=== PATIENT | female | born 1960 | race Caucasian/White ===

== ENCOUNTER 2020-06-12 09:44 | Outpatient (CLI) | payer OTHER, SELFPAY ==
[~2020-06-12] VITALS: Ht 160 cm; Wt 91.2 kg
== END 2020-06-12 10:00 | disposition home or self-care (01) ==
LOC: SLB 09:44 → EDSTATUS 06-18 09:43
PROVIDERS: ATTEND Internal Medicine
DX: Z01.812 Encounter for preprocedural laboratory examination (principal); Z20.828 Contact with and (suspected) exposure to other viral communicable diseases; M51.9 Unspecified thoracic, thoracolumbar and lumbosacral intervertebral disc disorder
CPT/HCPCS: U0003-CS

== ENCOUNTER 2021-02-04 08:45 | Day surgery (SDC) | payer OTHER, SELFPAY ==
[~2021-02-04] VITALS: Ht 157.5 cm; Wt 88.0 kg
[2021-02-04] MEDS ORDERED: DIPHENHYDRAMINE INJ 50 MG/ML VIAL ONE (08:52)
[2021-02-04] MEDS ORDERED: MIDAZOLAM HCL 5 MG/5 ML VIAL ONE (08:52)
[2021-02-04 13:32] VITALS: BP_SYST 130
== END 2021-02-04 10:40 | disposition home or self-care (01) ==
LOC: SDS 08:45 → SMU 08:45 → SDS 10:40
PROVIDERS: ATTEND Internal Medicine
DX: M51.16 Intervertebral disc disorders with radiculopathy, lumbar region (principal); I10 Essential (primary) hypertension; E11.9 Type 2 diabetes mellitus without complications; M81.0 Age-related osteoporosis without current pathological fracture; G89.4 Chronic pain syndrome; Z79.84 Long term (current) use of oral hypoglycemic drugs; Z79.899 Other long term (current) drug therapy; Z20.828 Contact with and (suspected) exposure to other viral communicable diseases
CPT/HCPCS: 62323; 82962; J1200; J2250; J7030; U0003; 76000